=== PATIENT | female | born 1995 | race Hispanic/Latino ===

== ENCOUNTER 2024-01-05 21:00 | Emergency (ER) | payer SELFPAY ==
[~2024-01-05] VITALS: Ht 157.5 cm; Wt 95.3 kg
[2024-01-05 21:31] LABS: BASOPHILS # (AUTO) 0.05 K/uL (0.00-0.20); BASOPHILS % (AUTO) 0.7 % (0.0-5.0); EOSINOPHILS # (AUTO) 0.05 K/uL (0.00-0.70); EOSINOPHILS % (AUTO) 0.7 % (0.0-8.0); HEMATOCRIT 39.2 % (36-48); IMMATURE GRANULOCYTE ABSOLUTE 0.02 K/uL (0-1); LYMPHOCYTES # (AUTO) 2.9 K/uL (1.0-4.8); LYMPHOCYTES % (AUTO) 39.6 % (21.0-51.0); MEAN CORPUSCULAR HEMOGLOBIN 31.5 pg (27.0-33.0); MEAN CORPUSCULAR HGB CONC 34.7 g/dL (32.0-36.0); MEAN CORPUSCULAR VOLUME 90.7 fL (79-99); NEUTROPHILS # (AUTO) 3.3 K/uL (1.8-7.7); NEUTROPHILS % (AUTO) 45.7 % (40.0-77.0); PLATELET COUNT (AUTO) 342 K/uL (130-400); RED BLOOD CELL COUNT(AUTO) 4.32 MIL/uL (4.00-5.50); RED CELL DISTRIBUTION WIDTH 13.2 % (11.0-15.5); WHITE BLOOD COUNT (AUTO) 7.3 K/uL (4.8-10.8)
[2024-01-05 22:12] LABS: CREATININE 0.8 mg/dL (0.5-1.0); POTASSIUM 3.1 mmol/L (3.5-5.1)
[2024-01-05 22:18] LABS: APPEARANCE,URINE CLEAR (CLEAR); BILIRUBIN,URINE NEGATIVE (NEGATIVE); COLOR,URINE COLORLESS (YELLOW); GLUCOSE, URINE (UA) NEGATIVE (NEGATIVE); KETONES,URINE NEGATIVE (NEGATIVE); LEUKOCYTE ESTERASE ,URINE NEGATIVE Leu/uL (NEGATIVE); NITRATE,URINE NEGATIVE (NEGATIVE); OCCULT BLOOD,URINE LARGE (NEGATIVE); PH,URINE 6.5 (5.0-8.0); PROTEIN,URINE NEGATIVE (NEGATIVE); UROBILINOGEN,URINE 0.2 mg/dL (0.2-1.0)
[2024-01-05 22:19] LABS: ADD UA MICROSCOPIC YES
[2024-01-05 22:20] LABS: BACTERIA,URINE RARE /HPF (None Seen); RBC,URINE 0-1 /HPF (0-1); WBC,URINE 0-1 /HPF (0-1)
[2024-01-05] MEDS: PoTASSium BIcarbonate/CIT AC 25 MEQ TABLET.EFF PO STA (22:49)
[2024-01-05 23:18] VITALS: BP 138/86; PULSE 96; RESP 18; TEMP 98.7; O2SAT 100
--- NOTE | 2024-01-05 23:28 | HMCIMG ---
US OB <14 WEEKS HISTORY: Vaginal bleeding COMPARISON: None TECHNIQUE: Obstetrical ultrasound study was performed. FINDINGS: The uterus measures 9.3 x 4.7 x 5.7 centimeter. Both ovaries are not well seen. There is possible right adnexal cystic structure with peripheral flow. No evidence of intrauterine gestational sac is seen. In a patient with positive test, differential diagnosis would include early versus ectopic versus missed . Beta-hCG correlation is recommended. Endometrial thickness is 1 cm. No fluid is seen in the cul-de-sac. IMPRESSION: 1. No evidence of intrauterine gestational sac is seen. In a patient with positive test, differential diagnosis would include early versus ectopic versus missed . Beta-hCG correlation is recommended. Endometrial thickness is 1 cm. There is possible right adnexal cystic structure with peripheral flow.
--- NOTE | 2024-01-06 00:07 | ERN ---
ED Note History of Present Illness Stated Complaint: OB, VAGINAL BLEEDING Chief Complaint: OB<20 weeks gest. Time Seen by MD: 21:03 Time Seen by Midlevel: 21:06 Dictation: 28-year-old female with no past medical history coming in with complaints of vag inal spotting when she wipes. Patient states initially it started on 01/01 brought in color and progressed to read. LMP 10/27/2023, A0. Patient states has not seen an OBGYN has a appointment on Monday. Allergies: Coded Allergies: No Known Allergies (Unverified Allergy, Unknown, 01/05/24) Past Medical History Past Medical History: GERD Surgical History: None LMP: Oct 27, 2023 : 1 Review of System Dictation Constitutional: Negative for fever,chills, and weight loss Eyes: Negative for injury, pain,redness, and discharge ENT: Negative for injury,pain or swelling Cardiovascular: Negative for chest pain, palpitations, and edema Respiratory: Negative for shortness of breath, cough, and wheezing, Abdomen/GI: Negative for abdominal pain, nausea, vomiting, diarrhea, and constipation Back: Negative for injury and pain : Negative for injury, vaginal bleeding up when urinating wiping MS/Extremity: Negative for injury and deformity Skin: Negative for rash, and discoloration Neuro: Negative for headache, weakness, numbness, tingling, and seizure Psych: Negative for suicide ideation, homicidal ideation, and hallucinations Review of Systems: was completed Initial Vital Sign VS Vital Signs Date Time Temp Pulse Resp B/P (MAP) Pulse Ox O2 Delivery O2 Flow Rate FiO2 01/05/24 21:01 99.9 112 20 145/92 99 Room Air 01/05/24 23:18 0 21 Physical Exam Dictation General: awake, alert, NAD Head/Face: Normocephalic, atraumatic Eyes: PERRL, EOMI, vision at baseline ENT: oral cavity clear, TMs clear, no signs of infection Neck: Trachea midline, supple, no nuchal rigidity Cardiovascular: RRR, normal S1/S2, No MRGs, no JVD Respiratory: CTAB, no respiratory distress, No rales or wheezes Abdomen: Soft, non-tender, non-distended, normal bowel sounds, no guarding or rebound. Skin: Warm, dry, normal turgor, no rash MS/Extremity: Pulses equal, no cyanosis, neurovascular intact, FROM Neuro: COAx4, GCS 15, strength 5/5, CN 2-12 intact, normal cerebellar exam, normal gait, Psych: Normal behavior, mood, and affect normal Results (Laboratory/Radiology) Laboratory/Radiology Laboratory Tests Test 01/05/24 21:15 01/05/24 22:10 White Blood Count 7.3 K/uL (4.8-10.8) Red Blood Count 4.32 MIL/uL (4.00-5.50) Hemoglobin 13.6 g/dL (12.0-16.0) Hematocrit 39.2 % (36-48) Mean Corpuscular Volume 90.7 fL (79-99) Mean Corpuscular Hemoglobin 31.5 pg (27.0-33.0) Mean Corpuscular Hemoglobin Concent 34.7 g/dL (32.0-36.0) Red Cell Distribution Width 13.2 % (11.0-15.5) Platelet Count 342 K/uL (130-400) Mean Platelet Volume 9.5 fL (7.5-10.5) Immature Granulocyte % (Auto) 0.3 % (0-1) Neutrophils (%) (Auto) 45.7 % (40.0-77.0) Lymphocytes (%) (Auto) 39.6 % (21.0-51.0) Monocytes (%) (Auto) 13.0 % (3.0-13.0) Eosinophils (%) (Auto) 0.7 % (0.0-8.0) Basophils (%) (Auto) 0.7 % (0.0-5.0) Neutrophils # (Auto) 3.3 K/uL (1.8-7.7) Lymphocytes # (Auto) 2.9 K/uL (1.0-4.8) Monocytes # (Auto) 1.0 K/uL (0.1-1.0) Eosinophils # (Auto) 0.05 K/uL (0.00-0.70) Basophils # (Auto) 0.05 K/uL (0.00-0.20) Absolute Immature Granulocyte (auto 0.02 K/uL (0-1) Nucleated Red Blood Cells 0.0 % (0.0-0.19) Sodium Level 136 mmol/L (136-145) Potassium Level 3.1 mmol/L (3.5-5.1) L Chloride Level 101 mmol/L (101-111) Carbon Dioxide Level 29 mmol/L (21-32) Blood Urea Nitrogen 4 mg/dL (7-18) L Creatinine 0.8 mg/dL (0.5-1.0) Glomerular Filtration Rate Calc 104 mL/min (>90) Random Glucose 93 mg/dL (70-105) Total Calcium 9.1 mg/dL (8.5-10.1) Human Chorionic Gonadotropin, Quant 2004 mIU/mL (0-5) H Urine Color COLORLESS (YELLOW) Urine Appearance CLEAR (CLEAR) Urine pH 6.5 (5.0-8.0) Urine Specific [place] 1.000 (1.001-1.031) Urine Protein NEGATIVE mg/dL (NEGATIVE) Urine Glucose (UA) NEGATIVE mg/dL (NEGATIVE) Urine Ketones NEGATIVE mg/dL (NEGATIVE) Urine Occult Blood LARGE (NEGATIVE) H Urine Nitrate NEGATIVE (NEGATIVE) Urine Bilirubin NEGATIVE mg/dL (NEGATIVE) Urine Urobilinogen 0.2 mg/dL (0.2-1.0) Urine Leukocyte Esterase NEGATIVE Caprice/uL Urine RBC 0-1 /HPF (0-1) Urine WBC 0-1 /HPF (0-1) Urine Bacteria RARE /HPF (None Seen) Labs Reviewed?: Yes Ultrasound Comment: [place] [address] IMAGING REPORT Signed PATIENT: KENIA GOMEZ MR#: [id number] : 1995 SEX: F AGE: 28 LOCATION: [facility] ORDER 03 STATUS: [facility] REPORT#: [id number] SERVICE 01 REASON: VAGINAL BLEEDING 10 WEEKS ORDERING PHYSICIAN: CRYSTAL RAMOS MD PROCEDURE: OB <14 - US OB <14 WEEKS US OB <14 WEEKS HISTORY: Vaginal bleeding COMPARISON: None TECHNIQUE: Obstetrical ultrasound study was performed. FINDINGS: The uterus measures 9.3 x 4.7 x 5.7 centimeter. Both ovaries are not well seen. There is possible right adnexal cystic structure with peripheral flow. No evidence of intrauterine gestational sac is seen. In a patient with positive test, differential diagnosis would include early versus ectopic versus missed . Beta-hCG correlation is recommended. Endometrial thickness is 1 cm. No fluid is seen in the cul-de-sac. IMPRESSION: 1. No evidence of intrauterine gestational sac is seen. In a patient with positive test, differential diagnosis would include early versus ectopic versus missed . Beta-hCG correlation is recommended. Endometrial thickness is 1 cm. There is possible right adnexal cystic structure with peripheral flow. DICTATED BY: MOLINA VEGA MD DATE: 01/05/242323 ELECTRONICALLY SIGNED BY: MOLINA VEGA MD DATE: 01/05/242327 ED Course ED Course Orders Procedure Category Date Status Time Cbc With Differential LAB 01/05/24 Complete 21: Basic Metabolic Panel LAB 01/05/24 Complete 21:02 Abo/Rh BBK 01/05/24 Complete 21:02 Hcg,Quantitative LAB 01/05/24 Complete 21:02 Us Ob <14 Weeks US 01/05/24 Resulted 21:02 Urinalysis Profile LAB 01/05/24 Complete 21:18 Potassium Bicarb/Cit PHA 01/05/24 Complete Ac 25meq (K-Lyte Ta 22:31 Current Medications Medications (Trade) Dose Ordered Sig/Alphonse Route PRN Reason Start Time Stop Time Status Last Admin Dose Admin Potassium Bicarbonate (K-Lyte Tablet Eff 25 Meq Tablet.eff) 50 meq ONCE STAT PO 01/05/24 22:31 01/05/24 22:39 DC 01/05/24 22:49 Vital Signs Date Time Temp Pulse Resp B/P (MAP) Pulse Ox O2 Delivery O2 Flow Rate FiO2 01/05/24 23:18 98.8 96 18 138/86 100 Room Air* 0 21 01/05/24 21:01 99.9 112 20 145/92 99 Room Air Medical Decision Making MDM MDM: 28-year-old female with no past medical history coming in with complaints of vaginal spotting when she wipes. Patient states initially it started on 01/01 brought in color and progressed to read. LMP 10/27/2023, A0. Patient states has not seen an OBGYN has a appointment on Monday.CBC shows a leukocytosis, no anemia, no thrombocytopenia. Chemistry shows mild hypokalemia at 3.1, replacement given in the ER. HCG quantitative is 2003. UA shows no evidence of urinary tract infection. Ultrasound shows no evidence of IUP, can not rule out early , ectopic, missed . Intermenstrual thickness of 1 cm. Right adnexal cyst with peripheral flow. Consulted Dr. Mesa , OBGYN, suggested give the patient bed rest instructions, and follow up with her OBGYN in two days. Discussed findings with the patient and recommendations or OBGYN, states she has a appointment with the tear OBGYN on Monday. Educated patient to follow up in 1-2 days with her OBGYN, return to the emergency room as needed worse symptoms worsen. Patient verbalized understanding, answered all questions. Differential diagnosis: Slight miscarriage, early , subchorionic bleed Rationale: Tests considered and ordered secondary to shared decision making include: Previous outside records reviewed: Old ER visits. Risk of complication and/or morbidity or mortality of patient management: None Medications-Per medication reconciliation Need for hospitalization: Patient does not meet criteria for hospitalization. Need for emergency major/minor surgery: No There are no social concerns with this patient. Prescription drug management Prescriptions will include symptomatic care Patient's prior external medical records from other ER visits were reviewed by me as indicated. Prior testing and results from previous visits were reviewed. Prior tests were taken into account with medical decision making and resource utilization, independent historian/historians were used to obtain complete medical history. I independently interpreted the test that were performed, results were reviewed by me and considered findings on radiology if ordered. Medical management and examination interpretation discussions were had by me with other qualified healthcare professionals as indicated for the patient's care. DX & DISP Disposition: Discharge Departure Impression: Primary Impression: Threatened Condition: Stable Additional Instructions: Maintain bed rest until cleared by your OBGYN. Follow up with her OBGYN in 1-2 days, you will need serial HCGs and ultrasound. Referrals: SELF,REFERRAL (PCP) Time of Disposition: 00:06 I have reviewed the case, and I agree with, Diagnosis and Plan JULIAN ESCALANTE NP Jan 06, 2024 00:07
== END 2024-01-06 00:14 | disposition home or self-care (01) ==
LOC: EDH 21:00
DX: O20.0 Threatened abortion (principal); K21.9 Gastro-esophageal reflux disease without esophagitis; Z3A.00 Weeks of gestation of pregnancy not specified
CPT/HCPCS: 36415; 76801; 80048; 81001; 84702; 85025; 86900; 86901; 99284